=== PATIENT | male | born 1945 | race Caucasian/White ===

== ENCOUNTER 2017-07-27 09:01 | Emergency (ER) | payer MEDICARE ==
[2017-07-27 09:29] VITALS: BP 126/75
--- NOTE | 2017-07-27 09:38 | UC ---
Eye Complaint HPI - HPI Summary HPI Summary: C/O left eye pain with discharge x 3 days with right eye involvement starting yesterday. Recent URI. - History of Current Complaint Chief Complaint: UCGeneralIllness Stated Complaint: BILATERAL EYE COMPLAINT, SORE THROAT Hx Obtained From: Patient Onset/Duration: Sudden Onset, Lasting Days - 3, Worse Since - yesterday Timing: Constant Severity Initially: Mild Severity Currently: Moderate Pain Intensity: 1 Location of Injury: Conjunctiva Character: Sharp Aggravating Factor(s): Blinking Alleviating Factor(s): Nothing Associated Signs And Symptoms: Positive: Drainage (Purulent). Negative: Photophobia, Vision Impairment Right, Vision Impairment Left, Fever, Swelling - Risk Factors Penetrating Injury Risk Factor: Negative Acute Glaucoma Risk Factors: Negative - Allergies/Home Medications Allergies/Adverse Reactions: Allergies Allergy/AdvReac Type Severity Reaction Status Date / Time No Known Allergies Allergy Verified 07/27/17 09:21 PMH/Surg Hx/FS Hx/Imm Hx Previously Healthy: Yes - Surgical History Surgical History: None - Family History Known Family History: Positive: Cardiac Disease, Hypertension, Diabetes - Social History Occupation: Employed Full-time Lives: Alone Alcohol Use: Daily Alcohol Amount: whiskey Substance Use Type: None Substance Use Comment - Amount & Last Used: occasional use- last used last night. Smoking Status (MU): Current Every Day Smoker Type: Pipe Household Exposure Type: Cigarettes Review of Systems Eyes: Drainage, Eye Redness Is Patient Immunocompromised?: No All Other Systems Reviewed And Are Negative: Yes Physical Exam Triage Information Reviewed: Yes Appearance: Well-Appearing, No Pain Distress, Well-Nourished Vital Signs: Initial Vital Signs Temp 98.4 F 07/27/17 09:21 Pulse 79 07/27/17 09:21 Resp 19 07/27/17 09:21 BP 126/75 07/27/17 09:21 Pulse Ox 98 07/27/17 09:21 Eyes: Positive: Conjunctiva Inflamed - OU OS>OD ENT: Positive: Pharynx normal, TMs normal Neck exam: Normal Respiratory Exam: Normal Cardiovascular Exam: Normal Musculoskeletal Exam: Normal Neurological Exam: Normal Psychological Exam: Normal Skin Exam: Normal Eye Complaint Course/Dx - Differential Dx/Diagnosis Differential Diagnosis/HQI/PQRI: Conjunctivitis, Keratitis, Uveitis Provider Diagnoses: Acute bilateral viral conjunctivitis Discharge - Sign-Out/Discharge Documenting (check all that apply): Discharge - Discharge Plan Condition: Stable Disposition: HOME Prescriptions: Erythromycin OPTH OINT* [Erythromycin 0.5% OPTH OINT*] 1 applic BOTH EYES TID # 3.5 gm Patient Education Materials: Conjunctivitis (ED), Erythromycin (Into the eye) Referrals: Ana M Randhawa MD [Primary Care Provider] - Additional Instructions: EYE OINTMENT USE: Wash hands. Place 1/4" strip across tip of finger. Pull lower lid down with the index finger and stabilize the ointment finger with the middle finger and scrape the ointment off on the lid. Pull the lid out and let go as you look down. - Billing Disposition and Condition Condition: STABLE Disposition: HOME
== END 2017-07-27 10:02 | disposition home or self-care (01) ==
LOC: UCCORT 09:01
DX: B30.9 Viral conjunctivitis, unspecified (principal); F17.210 Nicotine dependence, cigarettes, uncomplicated
CPT/HCPCS: 99212; G0463